=== PATIENT | male | born 1985 | race Caucasian/White ===

== ENCOUNTER 2020-12-03 11:01 | Emergency (ER) | payer MEDICAID ==
[2020-12-03] MEDS ORDERED: SODIUM CHLORIDE 0.9% 2,993.7 ML IV STA (11:24)
[2020-12-03] MEDS ORDERED: ACETAMINOPHEN 325 MG TABLET PO STA (11:25)
[2020-12-03] MEDS ORDERED: HYDROmorphone 1 MG/ML CARPUJECT IVP STA ×2 (11:33→12:19)
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
[2020-12-03 11:45] LABS: BASOPHILS % (AUTO) 0.2 %; EOSINOPHILS % (AUTO) 0.1 %; HCT - HEMATOCRIT 31.9 % (42.0-52.0); HGB - HEMOGLOBIN 9.4 g/dL (14.0-18.0); LYMPHOCYTES % (AUTO) 4.4 %; MEAN CORPUSCULAR HEMOGLOBIN 24.1 pg (27.0-31.0); MEAN CORPUSCULAR HGB CONC 29.5 g/dL (32.0-36.0); MEAN CORPUSCULAR VOLUME 81.8 fL (80.0-94.0); MEAN PLATELET VOLUME 7.6 fL (7.4-11.4); MONOCYTES % (AUTO) 0.2 %; NEUTROPHILS % (AUTO) 94.6 %; PLT - PLATELET COUNT 385 10^3/uL (130-450); RED CELL DISTRIBUTION WIDTH 16.6 % (12.0-15.0)
[2020-12-03 11:50] LABS: ABNORMAL LYMPHS % (MANUAL) 0 %
[2020-12-03 11:57] LABS: LACTIC ACID, VENOUS 5.6 mmol/L (0.5-2.2)
--- NOTE | 2020-12-03 12:04 | XRAY Report ---
PROCEDURE: Tib/Fib RT INDICATIONS: wound site pain postoperative, fever TECHNIQUE: 2 views of the tibia and fibula were acquired. COMPARISON: None FINDINGS: Bones: Proximal mid tibial fixation is present. Hardware is intact and there is good anatomic alignme nt. No suspicious bony lesions. No acute fractures are identified. Soft tissues: No suspicious soft tissue calcifications or masses. IMPRESSION: Proximal tibial fixation with intact appearance of hardware. Reviewed by: Christie Garzon MD on 12/03/2020 12:03 PM PDT Approved by: Christie Garzon MD on 12/03/2020 12:03 PM PDT Station ID: [id number]
[2020-12-03 12:06] LABS: BAND NEUTROPHILS % (MANUAL) 34 %; EOSINOPHILS # (MANUAL) 0.1 10^3/uL (0-0.7); LYMPHOCYTES # (MANUAL) 0.5 10^3/uL (1.5-3.5); LYMPHOCYTES % (MANUAL) 4 %; NEUTROPHILS # (MANUAL) 11.4 10^3/uL (1.5-6.6)
[2020-12-03 12:07] LABS: DIFFERENTIAL COMMENT MANUAL DIFFERENTIAL; WBC MORPHOLOGY (MULTIPLE) 2+ VACUOLA (NORMAL)
[2020-12-03 12:20] LABS: ALBUMIN 3.3 g/dL (3.2-5.5); ALBUMIN/GLOBULIN RATIO 0.9 (1.0-2.2); BILIRUBIN,TOTAL 0.7 mg/dL (0.2-1.0); CALCIUM 8.8 mg/dL (8.5-10.3); CREATININE 1.4 mg/dL (0.6-1.2); POTASSIUM 3.5 mmol/L (3.5-5.0)
[2020-12-03] MEDS ORDERED: SODIUM CHLORIDE 0.9% 1,000 ML IV STA ×2 (13:04→18:06)
[2020-12-03] MEDS ORDERED: LORazepam 1 MG TABLET PO STA (13:52)
[2020-12-03] MEDS ORDERED: IOPAMIDOL-300 100 ML VIAL ONE (14:00)
[2020-12-03] MEDS ORDERED: PIPERACILLIN/TAZOBACTAM 3.375 GM in SODIUM CHLORIDE 0.9% MINIBAG 100 ML IV STA (14:04)
[2020-12-03] MEDS ORDERED: VANCOMYCIN INJ 1.25 GM in SODIUM CHLORIDE 0.9% 250 ML IV STA (14:06)
[2020-12-03] MEDS ORDERED: VANCOMYCIN INJ 2.25 GM in SODIUM CHLORIDE 0.9% 500 ML IV ONE (14:07)
[2020-12-03 14:38] LABS: MUDS CUTOFF CONCENTRATIONS CUTOFF CONC BELOW:
[2020-12-03 14:48] LABS: BILIRUBIN,URINE NEGATIVE (NEGATIVE); GLUCOSE, URINE (UA) NEGATIVE (NEGATIVE); KETONES,URINE (UA) NEGATIVE (NEGATIVE); LEUKOCYTE ESTERASE, URINE NEGATIVE (NEGATIVE); NITRITE,URINE NEGATIVE (NEGATIVE); OCCULT BLOOD,URINE NEGATIVE (NEGATIVE); PH,URINE 5.5 PH (5.0-7.5); PROTEIN,URINE TRACE mg/dL (NEGATIVE); UROBILINOGEN,URINE 0.2 (NORMAL) E.U./dL (NORMAL)
[2020-12-03 14:53] LABS: CLARITY,URINE HAZY (CLEAR)
[2020-12-03] MEDS ORDERED: KETOROLAC 30 MG/ML VIAL IVP STA (14:57)
[2020-12-03] MEDS ORDERED: methocarbamoL 500 MG TABLET PO STA (15:01)
[2020-12-03 15:06] LABS: BACTERIA,URINE Moderate /HPF (None Seen); RBC,URINE 0-5 /HPF (0-5); SQUAMOUS EPITHELIAL CELL,UR FEW Squamous (<= Few)
[2020-12-03 15:07] LABS: MUCUS,URINE Few Strands
[2020-12-03 15:13] LABS: AMPHETAMINE SCREEN,URINE POSITIVE (NEGATIVE); BARBITURATE SCREEN,UR NEGATIVE (NEGATIVE); BENZODIAZEPINES SCREEN, URINE NEGATIVE (NEGATIVE); COCAINE SCREEN URINE NEGATIVE (NEGATIVE); METHADONE SCREEN, URINE POSITIVE (NEGATIVE); METHAMPHETAMINES SCREEN, URINE POSITIVE (NEGATIVE); OPIATE SCREEN, URINE POSITIVE (NEGATIVE); OXYCODONE SCREEN, URINE POSITIVE (NEGATIVE); PROPOXYPHENE SCREEN, URINE NEGATIVE (NEGATIVE); THC CANNABINOID SCREEN, URINE NEGATIVE (NEGATIVE); TRICYCLIC ANTIDEPRESSANT,URINE NEGATIVE (NEGATIVE)
[2020-12-03 15:37] LABS: B. PARAPERTUSSIS- RESP PCR PAN NOT DETECTED; B. PERTUSSIS- RESP PCR PANEL NOT DETECTED; C. PNEUMONIAE- RESP PCR PANEL NOT DETECTED; CORONAVIRUS 229E-RESP PCR NOT DETECTED; CORONAVIRUS HKU1-RESP PCR NOT DETECTED; CORONAVIRUS NL63-RESP PCR NOT DETECTED; CORONAVIRUS OC43-RESP PCR NOT DETECTED; HUMAN METAPNEUMOVIRUS NOT DETECTED; INFLUENZA A- RESP PCR PANEL NOT DETECTED; INFLUENZA B - RESP PCR PANEL NOT DETECTED; M. PNEUMONIAE- RESP PCR PANEL NOT DETECTED; PARAINFLUENZA VIRUS 1 NOT DETECTED; PARAINFLUENZA VIRUS 2 NOT DETECTED; PARAINFLUENZA VIRUS 3 NOT DETECTED; PARAINFLUENZA VIRUS 4 NOT DETECTED; RHINOVIRUS/ENTEROVIRUS NOT DETECTED; RSV- RESP PCR PANEL NOT DETECTED; SARS-CoV-2 -RESP PCR PANEL NOT DETECTED
--- NOTE | 2020-12-03 16:34 | CT Report ---
PROCEDURE: LOWER EXTREMITY W - RT INDICATIONS: fever, postoperative pain, recent fall TECHNIQUE: Noncontrast [address] images through left lower leg were obtained. Coronal and sagitta l reformats were obtained and reviewed. COMPARISON: Right lower leg radiograph from the same day. FINDINGS: Bones and joints: Extensive post ORIF changes in the proximal tibial shaft is seen. Comminuted fractures through proxim al tibial shaft extending to lateral tibial plateau is seen with fracture line also extending to invo lve base of the tibial spine with superior displacement of multiple small fractured fragments. No sig nificant depression at lateral tibial plateau is seen. Fracture line is also seen extending to medial cortex of proximal tibial shaft. No gross hardware loosening or failure is seen. There is suggestion of prior external fixation with screw tracts noted in distal femoral shaft and distal tibial shaft. No acute fracture is noted in distal femur and mid to distal tibia. No fracture is noted in fibular a nd visualized portion of right ankle and foot. No suspicious intraosseous lesion is seen. Ankle morti se is congruent. Soft tissues: There is moderate amount of right knee joint effusion. No abnormal soft tissue calcifications. Distal quadriceps tendon and patellar tendon are grossly intact. No gross muscle or soft tissue abnormality is seen in right lower leg. Achilles tendon is intact. Plantar fascia is grossly intact. No gross fu ll-thickness rupture is seen in extensor, flexor, or peroneus tendons. IMPRESSION: 1. Comminuted fractures involving proximal tibia extending to lateral tibial plateau and base of tibi al spine as above. Small superiorly displaced fractured fragments adjacent to lateral tibial plateau. Patient is status post internal fixation of proximal to mid tibial shaft. Postsurgical changes also noted in distal tibial shaft which may represent prior external fixation hardware placement. No other fracture or dislocation is seen. 2. Moderate amount of joint effusion, no gross intra-articular loose body or abnormal soft tissue liza cifications. No full-thickness tendon rupture is seen in left knee and left ankle. 3. No gross hardware loosening or failure is seen. 4. No definite bony erosive changes are seen to suggest osteomyelitis. Reviewed by: Segundo Sen MD on 12/03/2020 4:33 PM PDT Approved by: Segundo Sen MD on 12/03/2020 4:33 PM PDT Station ID: [id number]
[2020-12-03] MEDS ORDERED: IOPAMIDOL-300 100 ML VIAL IVP ONE (16:55)
--- NOTE | 2020-12-03 18:32 | ED Physician Documentation ---
ED Addendum - Addendum Addendum: 12/03/20 18:30 Discussed the case with Dr. Lubin, orthopedics on-call at [facility]. She agrees to accept the patient in transfer. The patient's fever broke in the emergency department. He is feeling better. Will need to continue on IV antibiotics. Lactate decreased. Concern for possible septic joint with hardware infection. COBRA forms completed. Patient transferred This document was made in part using voice recognition software. While efforts are made to proofread this document, sound alike and grammatical errors may occur. CT RLE IMPRESSION: 1. Comminuted fractures involving proximal tibia extending to lateral tibial plateau and base of tibial spine as above. Small superiorly displaced fractured fragments adjacent to lateral tibial plateau. Patient is status post internal fixation of proximal to mid tibial shaft. Postsurgical changes also noted in distal tibial shaft which may represent prior external fixation hardware placement. No other fracture or dislocation is seen. 2. Moderate amount of joint effusion, no gross intra-articular loose body or abnormal soft tissue calcifications. No full-thickness tendon rupture is seen in left knee and left ankle. 3. No gross hardware loosening or failure is seen. 4. No definite bony erosive changes are seen to suggest osteomyelitis. Departure - Departure Disposition: 02 Transfer Acute Care Hosp Clinical Impression: Joint infection Fever Qualifiers: Fever type: unspecified Qualified Code(s): R50.9 - Fever, unspecified Sepsis Qualifiers: Sepsis type: sepsis due to unspecified organism Sepsis acute organ dysfunction status: unspecified Qualified Code(s): A41.9 - Sepsis, unspecified organism Condition: Stable
[2020-12-03] MEDS ORDERED: IOVERSOL 320 100 ML VIAL IVP ONE (19:07)
[2020-12-03 19:39] VITALS: BP 120/80
== END 2020-12-03 19:44 | disposition short-term general hospital (02) ==
LOC: ED 11:01
DX: M00.9 Pyogenic arthritis, unspecified (principal); A41.9 Sepsis, unspecified organism; R00.0 Tachycardia, unspecified; Z20.822 Contact with and (suspected) exposure to COVID-19
CPT/HCPCS: 0202U; 36415; 73590; 73701; 80053; 80306; 81001; 82550; 83605; 85025; 85651; 86140; 87040; 87086; 93005; 96365; 96366; 96367; 96375; 99285; A9270; J1170; J3370; J8499; Q9967

== ENCOUNTER 2020-12-03 19:45 | Outpatient (CLI) | payer MEDICAID | END 2020-12-03 19:46 | disposition short-term general hospital (02) | LOC: EMS 19:45 | PROVIDERS: ATTEND Emergency Medicine | DX: A41.9 Sepsis, unspecified organism (principal); M25.40 Effusion, unspecified joint | CPT/HCPCS: A0425; A0426 ==